=== PATIENT | male | born 1955 | race Caucasian/White ===

== ENCOUNTER → 2018-08-09 | Outpatient (CLI) | payer OTHER ==
--- NOTE | 2018-08-09 13:58 | Diagnostic Imaging Report ---
Indication: Back pain Findings: Sternal wires midline. Thoracic body heights maintained. The alignment within normal limits. There is degenerative changes to the thoracic spine with anterior osteophytes. Impression: Spondylosis with no fracture or traumatic malalignment. Dictated by: Dictated on workstation # [id number]
--- NOTE | 2018-08-09 15:03 | Diagnostic Imaging Report ---
EXAMINATION: Lumbar spine at 12:49 p.m. INDICATION: Back pain. FINDINGS: AP, lateral, and spot lateral views were obtained. There are no prior studies available for comparison. The lateral view shows the vertebral body heights and alignment to be within normal limits. There is narrowing of the disc space at L5-S1. The other intervertebral disc spaces are well maintained. There is no fracture or acute bony abnormality evident. There is no sign of a paraspinal mass. There is mild symmetrical sclerosis of the sacroiliac joints. IMPRESSION: 1. There is no evidence for an acute bony abnormality. 2. There is moderate degenerative disc disease at L5-S1. If there is clinical concern regarding spinal stenosis or nerve root encroachment at this level, then MRI will be recommended for additional study. Dictated by: Dictated on workstation # [id number]
--- NOTE | 2018-08-09 15:54 | Diagnostic Imaging Report ---
EXAMINATION: Cervical spine at 12:46 p.m. INDICATION: Chronic pain. FINDINGS: AP, lateral, and odontoid views were obtained. There are no prior studies available for comparison. The lateral view does show narrowing of the disc space at C5-C6. There are also osteophytes along the opposing endplates of C5 and C6 anteriorly. The other intervertebral disc spaces are fairly well maintained. There is no fracture or acute bony abnormality evident. There is no evidence for retropharyngeal edema and the lung apices are clear. There is a coiled radiopaque density in the soft tissues of the left side of the neck. This is probably extraneous to the patient. IMPRESSION: 1. There is no evidence for an acute bony abnormality. 2. There is degenerative disc and bony disease at C5-C6. If there is clinical concern regarding spinal stenosis or nerve root encroachment, then MRI will be recommended for further evaluation. Dictated by: Dictated on workstation # [id number]
== END ==
LOC: RAD 12:27
PROVIDERS: ATTEND Nurse Practitioner Adult Health
DX: M51.37 Other intervertebral disc degeneration, lumbosacral region (principal); M47.814 Spondylosis without myelopathy or radiculopathy, thoracic region; M89.9 Disorder of bone, unspecified; M50.322 Other cervical disc degeneration at C5-C6 level
CPT/HCPCS: 72040; 72072; 72100

== ENCOUNTER 2018-12-17 11:19 | Emergency (ER) | payer OTHER ==
[~2018-12-17] VITALS: Ht 177 cm; Wt 92.0 kg
--- NOTE | 2018-12-17 12:09 | ED GI ---
General Chief Complaint: Abdominal/GI Problems Stated Complaint: R SIDE ABD SWELLING Nursing Triage Note: Patient ambulatory to ER FT1 with complaint of right lower qudrant abdominal pain and distention since . Patient denies any recent trauma. Patient is currently taking antibiotics for right foot infection. Sepsis Screen: No Definite Risk Source of Information: Patient Exam Limitations: No Limitations (KIERAN BOLANOS STUDENT) History of Present Illness Date Seen by Provider: Dec 17, 2018 Time Seen by Provider: 11:50 Initial Comments Patient presents to the ED with a five day history of abdominal swelling in the RUQ and RLQ accompanied with slight pain. He noticed it night before going to bed. He has had a cholecystectomy and states he does not drink, howev er he is a long time smoker. The patient states that he has been having 2-4 bowel movements a day and almost all are formed. He currently had foot surgery and is currently taking Cephalexin to prevent infection. He has no problems when having a BM or during micturition. The patient does not complain of any other associated symptoms. Timing/Duration: 4-5 Days Severity/Quality: Mild, Dull Location: RUQ, RLQ, Flank (Left flank) Radiation: Flank (The pain on his right side radiates to the right flank) Activities at Onset: None Modifying Factors: Improves With Other (Nothing has made the swelling go down or the pain to subside) Associated Symptoms: Swelling/Mass in Abdomen (KIERAN BOLANOS STUDENT) Timing/Duration: 4-5 Days Severity/Quality: Mild, Aching, Dull Location: Flank (Left flank) (RIZWAN LEE MD) Allergies and Home Medications Allergies Coded Allergies: codeine (Verified Allergy, Unknown, 12/17/18) Patient Home Medication List Home Medication List Reviewed: Yes (RIZWAN LEE MD) Review of Systems Review of Systems Constitutional: no symptoms reported EENTM: No Symptoms Reported Respiratory: No Symptoms Reported Cardiovascular: No Symptoms Reported Gastrointestinal: See HPI Genitourinary: No Symptoms Reported Musculoskeletal: no symptoms reported Skin: no symptoms reported Psychiatric/Neurological: No Symptoms Reported Endocrine: No Symptoms Reported Hematologic/Lymphatic: No Symptoms Reported (KIREAN BOLANOS) Constitutional: no symptoms reported EENTM: See HPI, Mouth Pain; No Mouth Swelling; Other (dental pain) Respiratory: Denies Shortness of Air, Denies Wheezing Cardiovascular: Denies Chest Pain, Denies Edema Gastrointestinal: See HPI; Denies Nausea, Denies Vomiting (RIZWAN LEE MD) All Other Systems Reviewed Negative Unless Noted: Yes (RIZWAN LEE MD) Past Rtyamys-Cryeqv-Fewepd Hx Past Med/Social Hx: Reviewed Nursing Past Med/Soc Hx (RIZWAN LEE MD) Patient Social History Recent Foreign Travel: No Contact w/Someone Who Travel: No Recent Infectious Disease Expo: No (KIERAN BOLANOS STUDENT) Family Medical History Reviewed Nursing Family Hx (RIZWAN LEE MD) No Pertinent Family Hx (RIZWAN LEE MD) Physical Exam Vital Signs Vital Signs - First Documented 12/17/18 11:43 Temp 37.0 Pulse 97 Resp 16 B/P (MAP) 164/108 (126) Pulse Ox 99 O2 Delivery Room Air (RIZWAN LEE MD) Vital Signs Capillary Refill : Less Than 3 Seconds (KIERAN BOLANOS STUDENT) Height/Weight/BMI Height: '" Weight: lbs. oz. kg; 29.00 BMI Method: General Appearance: no apparent distress HEENT: PERRL/EOMI, pharynx normal Respiratory: chest non-tender, lungs clear, normal breath sounds, no respiratory distress, no accessory muscle use Cardiovascular: normal peripheral pulses, regular rate, rhythm, no edema, no gallop, no JVD, no murmur Peripheral Pulses: 2+ Dorsalis Pedis (R), 2+ Left Dors-Pedis (L), 2+ Radial Pulses (R), 2+ Radial Pulses (L) Gastrointestinal: normal bowel sounds, soft, no organomegaly, tenderness, mass (Questionable palpable mass) Extremities: non-tender, normal inspection, no pedal edema, no calf tenderness Back: no vertebral tenderness, CVA tenderness (R) Neurologic/Psychiatric: no motor/sensory deficits, alert, normal mood/affect, oriented x 3 Skin: normal color, warm/dry Lymphatic: no adenopathy (KIERAN BOLANOS STUDENT) General Appearance: WD/WN, no apparent distress HEENT: PERRL/EOMI, pharynx normal Neck: full range of motion, supple Respiratory: no respiratory distress, no accessory muscle use, crackles (mild basilar) Cardiovascular: regular rate, rhythm, no murmur Gastrointestinal: normal bowel sounds, soft, tenderness (right flank), mass (Questionable palpable mass right flank) Extremities: non-tender, normal inspection Back: no vertebral tenderness, CVA tenderness (R) Neurologic/Psychiatric: alert, oriented x 3 Skin: normal color, warm/dry (RIZWAN LEE MD) Progress/Results/Core Measures Results/Orders Lab Results Laboratory Tests Test 12/17/18 12:42 12/17/18 13:00 Range/Units White Blood Count 8.9 4.3-11.0 10^3/uL Red Blood Count 5.35 4.35-5.85 10^6/uL Hemoglobin 16.4 13.3-17.7 G/DL Hematocrit 48 40-54 % Mean Corpuscular Volume 90 80-99 FL Mean Corpuscular Hemoglobin 31 25-34 PG Mean Corpuscular Hemoglobin Concent 34 32-36 G/DL Red Cell Distribution Width 13.5 10.0-14.5 % Platelet Count 171 130-400 10^3/uL Mean Platelet Volume 9.7 7.4-10.4 FL Neutrophils (%) (Auto) 68 42-75 % Lymphocytes (%) (Auto) 22 12-44 % Monocytes (%) (Auto) 9 0-12 % Eosinophils (%) (Auto) 1 0-10 % Basophils (%) (Auto) 0 0-10 % Neutrophils # (Auto) 6.0 1.8-7.8 X 10^3 Lymphocytes # (Auto) 2.0 1.0-4.0 X 10^3 Monocytes # (Auto) 0.8 0.0-1.0 X 10^3 Eosinophils # (Auto) 0.1 0.0-0.3 10^3/uL Basophils # (Auto) 0.0 0.0-0.1 10^3/uL Sodium Level 142 135-145 MMOL/L Potassium Level 4.0 3.6-5.0 MMOL/L Chloride Level 105 98-107 MMOL/L Carbon Dioxide Level 26 21-32 MMOL/L Anion Gap 11 5-14 MMOL/L Blood Urea Nitrogen 20 H 7-18 MG/DL Creatinine 1.18 0.60-1.30 MG/DL Estimat Glomerular Filtration Rate > 60 BUN/Creatinine Ratio 17 Glucose Level 92 70-105 MG/DL Calcium Level 9.4 8.5-10.1 MG/DL Corrected Calcium 9.4 8.5-10.1 MG/DL Total Bilirubin 0.7 0.1-1.0 MG/DL Aspartate Amino Transf (AST/SGOT) 16 5-34 U/L Alanine Aminotransferase (ALT/SGPT) 15 0-55 U/L Alkaline Phosphatase 95 40-136 U/L C-Reactive Protein High Sensitivity 5.74 H 0.00-0.50 MG/DL Total Protein 7.2 6.4-8.2 GM/DL Albumin 4.0 3.2-4.5 GM/DL Urine Color YELLOW Urine Clarity CLEAR Urine pH 6 5-9 Urine Specific [place] 1.020 1.016-1.022 Urine Protein 1+ H NEGATIVE Urine Glucose (UA) NEGATIVE NEGATIVE Urine Ketones NEGATIVE NEGATIVE Urine Nitrite NEGATIVE NEGATIVE Urine Bilirubin NEGATIVE NEGATIVE Urine Urobilinogen NORMAL NORMAL MG/DL Urine Leukocyte Esterase 1+ H NEGATIVE Urine RBC (Auto) 1+ H NEGATIVE Urine RBC 0-2 /HPF Urine WBC 0-2 /HPF Urine Squamous Epithelial Cells NONE /HPF Urine Crystals PRESENT H /LPF Urine Calcium Oxalate Crystals RARE H /LPF Urine Bacteria NEGATIVE /HPF Urine Casts NONE /LPF Urine Mucus NEGATIVE /LPF Urine Culture Indicated NO (RIZWAN LEE MD) My Orders Orders - RIZWAN LEE MD Ed Iv/Invasive Line Start (12/17/18 12:19) Ns Iv 1000 Ml (Sodium Chloride 0.9%) (12/17/18 12:19) Cbc With Automated Diff (12/17/18 12:19) Comprehensive Metabolic Panel (12/17/18 12:19) Hs C Reactive Protein (12/17/18 12:19) Ua Culture If Indicated (12/17/18 12:19) Ct Abdomen/Pelvis W (12/17/18 13:09) Chest Pa/Lat (2 View) (12/17/18 13:09) Iohexol Injection (Omnipaque 350 Mg/Ml 1 (12/17/18 14:45) Received Contrast (Hold Metformin- Contr (12/17/18 14:45) Ns (Ivpb) (Sodium Chloride 0.9% Ivpb Bag (12/17/18 14:45) (RIZWAN LEE MD) Medications Given in ED Current Medications Medications Dose Ordered Sig/Delilah Route Start Time Stop Time Status Last Admin Dose Admin Iohexol 100 ml ONCE ONCE IV 12/17/18 14:45 12/17/18 14:46 DC 12/17/18 14:45 100 ML Sodium Chloride 100 ml ONCE ONCE IV 12/17/18 14:45 12/17/18 14:46 DC 12/17/18 14:45 80 ML Sodium Chloride 1,000 ml @ 0 mls/hr Q0M ONCE IV 12/17/18 12:19 12/17/18 12:21 DC 12/17/18 12:47 1,000 MLS/HR (RIZWAN LEE MD) Vital Signs/I&O 12/17/18 11:43 Temp 37.0 Pulse 97 Resp 16 B/P (MAP) 164/108 (126) Pulse Ox 99 O2 Delivery Room Air (RIZWAN LEE MD) Blood Pressure Mean: 126 POS Progress Progress Note : Progress Note I seen and evaluated the patient and agree with above except as indicated. Directed the plan of care. Patient is here with right-sided pain and swelling. Denies recent trauma or injury. He does take an aspirin several times a day for tooth pain but only one aspirin every 4-5 hours. He is currently on antibiotics for that. Denies nausea, vomiting or weakness. Physical exam as above. Plan is for IV, labs and CT scan of the abdomen and pelvis. We will get chest x-ray as he is a smoker and has had some cough. Monitor patient. 1520: CT results noted. This was discussed with the surgeon. He does have hematoma to the right intra- abdominal wall. I did rediscuss with the patient about, and he still denies that. We did discuss about aspirin given the hematoma and he still prefers to take that. [facility] and [facility]. Discharged home with return precautions. Patient verbalize unders tanding instructions and agreement with plan. (RIZWAN LEE MD) Diagnostic Imaging Diagonstic Imaging: Xray Plain Films/CT/US/NM/MRI: chest Comments [facility] POS [place], [place] POS NAME: MAGDALENA PINEDA Ismael [facility] REC#: [id number] PT STATUS: REG ER : 1955 PHYSICIAN: RIZWAN LEE MD ADMIT DATE: 12/17/18/ER Draft POSDate of Exam:12/17/18 CHEST PA/LAT (2 VIEW) INDICATION: Right-sided abdominal swelling. Time of exam 2:10 p.m. COMPARISON: No prior studies are available for comparison. FINDINGS: There are changes of median sternotomy. The heart is mildly enlarged. Lungs are clear. No infiltrates are seen. There is no evidence of congestive failure. No effusion or pneumothorax is seen. IMPRESSION: No acute cardiopulmonary process is detected. Dictated on workstation # [id number] Dict: 12/17/18 1412 Trans: 12/17/18 1416 [facility] [id number] Interpreted by: SABRINA DNAIELLE MD Electronically signed by: Celsansradha Imaging: CT Plain Films/CT/US/NM/MRI: abdomen, pelvis Comments [facility]. POS [place], [place] POS NAME: MAGDALENA PINEDA [facility] REC#: [id number] PT STATUS: REG ER : 1955 PHYSICIAN: RIZWAN LEE MD ADMIT DATE: 12/17/18/ER Draft POSDate of Exam:12/17/18 CT ABDOMEN/PELVIS W PROCEDURE: CT abdomen and pelvis with contrast. TECHNIQUE: Multiple contiguous axial images were obtained through the abdomen and pelvis after administration of intravenous contrast. Auto Exposure Controls were utilized during the CT exam to meet ALARA standards for radiation dose reduction. INDICATION: Lower right side swelling. COMPARISON: No prior studies are available for comparison. FINDINGS: There is some scarring or subsegmental atelectasis in the posterior right lower lobe. Otherwise, the lung bases are clear. No discrete liver mass is identified. Gallbladder is surgically absent. No biliary ductal dilatation is seen. Pancreas and spleen are unremarkable. No adrenal mass is identified. No renal calculus or hydronephrosis is identified. Aorta is nonaneurysmal. The small and large bowel loops are normal caliber. There is no obstruction. There is diverticulosis of the sigmoid but no evidence of acute diverticulitis. No free fluid is identified. Bladder is unremarkable. Prostate is mildly enlarged. Within the abdominal wall of the right flank, there is a probable small fluid collection. This measures approximately 4.9 cm AP x 2.1 cm transverse x 4.1 cm cephalocaudal. No internal gas is seen. It is most suggestive of a small abdominal wall hematoma. The bony structures are nonacute. IMPRESSION: 1. Low-density collection within the right flank abdominal wall, most suggestive of an abdominal wall hematoma. Even so, close-interval follow-up to confirm clearing is recommended. 2. Uncomplicated diverticulosis. 3. Prostatomegaly. Dictated on workstation # [id number] Dict: 12/17/18 1456 Trans: 12/17/18 1505 [id number] Interpreted by: SABRINA DANIELLE MD Electronically signed by: (RIZWAN LEE MD) Departure Impression Primary Impression: Abdominal wall hematoma Qualified Codes: S30.1XXA - Contusion of abdominal wall, initial encounter Disposition: 01 HOME, SELF-CARE Condition: Stable Departure-Patient Inst. Decision time for Depature: 15:24 (RIZWAN LEE MD) Referrals: NO,LOCAL PHYSICIAN (PCP) Primary Care Physician ANJUM DANIELS (Family) Primary Care Physician Patient Instructions: Acute Abdomen (Belly Pain), Adult (DC), HEMATOMA Add. Discharge Instructions: All discharge instructions reviewed with patient and/or family. Voiced understanding. Continue antibiotics for your tooth pain as prescribed and follow-up with the dentist as scheduled. [facility] and further evaluation regarding the abdominal wall hematoma. You really should limit use of aspirin due to that hematoma. You may use Tylenol 1000 mg every 6 hours as needed for pain instead. Return for worse pain, swelling, weakness, breathing problems, nausea or vomiting or other concerns as needed. KIERAN BOLANOS STUDENT Dec 17, 2018 12:09 RIZWAN MILNER MD Dec 17, 2018 15:25 POS
[2018-12-17] MEDS ORDERED: NS IV 1000 ML 1,000 ML IV ONE (12:19)
[2018-12-17 12:49] LABS: BASOPHILS % (AUTO) 0 % (0-10); EOSINOPHILS # (AUTO) 0.1 10^3/uL (0.0-0.3); EOSINOPHILS % (AUTO) 1 % (0-10); HEMATOCRIT 48 % (40-54); HEMOGLOBIN 16.4 G/DL (13.3-17.7); LYMPHOCYTES % (AUTO) 22 % (12-44); MEAN CORPUSCULAR HEMOGLOBIN 31 PG (25-34); MEAN CORPUSCULAR HGB CONC 34 G/DL (32-36); MEAN CORPUSCULAR VOLUME 90 FL (80-99); MEAN PLATELET VOLUME 9.7 FL (7.4-10.4); MONOCYTES # (AUTO) 0.8 X 10^3 (0.0-1.0); MONOCYTES % (AUTO) 9 % (0-12); NEUTROPHILS % (AUTO) 68 % (42-75); PLATELET COUNT 171 10^3/uL (130-400); RED CELL DISTRIBUTION WIDTH 13.5 % (10.0-14.5); WHITE BLOOD COUNT 8.9 10^3/uL (4.3-11.0)
[2018-12-17 13:06] LABS: ALANINE AMINOTRANSFERASE 15 U/L (0-55); ALKALINE PHOSPHATASE 95 U/L (40-136); BILIRUBIN,TOTAL 0.7 MG/DL (0.1-1.0); BUN/CREATININE RATIO 17; CALCIUM 9.4 MG/DL (8.5-10.1); CARBON DIOXIDE 26 MMOL/L (21-32); CHLORIDE 105 MMOL/L (98-107); CREATININE SERUM 1.18 MG/DL (0.60-1.30); GFR ESTIMATED > 60; GLUCOSE 92 MG/DL (70-105); SODIUM 142 MMOL/L (135-145); TOTAL PROTEIN 7.2 GM/DL (6.4-8.2)
[2018-12-17 13:09] LABS: BILIRUBIN,URINE NEGATIVE (NEGATIVE); CLARITY,URINE CLEAR; COLOR,URINE YELLOW; GLUCOSE, URINE (UA) NEGATIVE (NEGATIVE); KETONES,URINE NEGATIVE (NEGATIVE); LEUKOCYTE ESTERASE ,URINE 1+ (NEGATIVE); NITRITE,URINE NEGATIVE (NEGATIVE); PH,URINE 6 (5-9); PROTEIN,URINE 1+ (NEGATIVE)
[2018-12-17 13:30] LABS: BACTERIA,URINE NEGATIVE /HPF; CALCIUM OXALATE CRYSTALS,UR RARE /LPF; RBC,URINE 0-2 /HPF; WBC,URINE 0-2 /HPF
--- NOTE | 2018-12-17 14:16 | Diagnostic Imaging Report ---
INDICATION: Right-sided abdominal swelling. Time of exam 2:10 p.m. COMPARISON: No prior studies are available for comparison. FINDINGS: There are changes of median sternotomy. The heart is mildly enlarged. Lungs are clear. No infiltrates are seen. There is no evidence of congestive failure. No effusion or pneumothorax is seen. IMPRESSION: No acute cardiopulmonary process is detected. Dictated by: Dictated on workstation # [id number]
[2018-12-17] MEDS ORDERED: HOLD METFORMIN - RECEIVED CONTRAST 20 ML VIAL IV SCH (14:45)
[2018-12-17] MEDS ORDERED: NS 100 ML (IVPB) BAG IV ONE (14:45)
[2018-12-17] MEDS ORDERED: IOHEXOL 350 MG/ML 100 ML (OMNIPAQUE 350) VIAL IV ONE (14:45)
--- NOTE | 2018-12-17 15:06 | Diagnostic Imaging Report ---
PROCEDURE: CT abdomen and pelvis with contrast. TECHNIQUE: Multiple contiguous axial images were obtained through the abdomen and pelvis after administration of intravenous contrast. Auto Exposure Controls were utilized during the CT exam to meet ALARA standards for radiation dose reduction. INDICATION: Lower right side swelling. COMPARISON: No prior studies are available for comparison. FINDINGS: There is some scarring or subsegmental atelectasis in the posterior right lower lobe. Otherwise, the lung bases are clear. No discrete liver mass is identified. Gallbladder is surgically absent. No biliary ductal dilatation is seen. Pancreas and spleen are unremarkable. No adrenal mass is identified. No renal calculus or hydronephrosis is identified. Aorta is nonaneurysmal. The small and large bowel loops are normal caliber. There is no obstruction. There is diverticulosis of the sigmoid but no evidence of acute diverticulitis. No free fluid is identified. Bladder is unremarkable. Prostate is mildly enlarged. Within the abdominal wall of the right flank, there is a probable small fluid collection. This measures approximately 4.9 cm AP x 2.1 cm transverse x 4.1 cm cephalocaudal. No internal gas is seen. It is most suggestive of a small abdominal wall hematoma. The bony structures are nonacute. IMPRESSION: 1. Low-density collection within the right flank abdominal wall, most suggestive of an abdominal wall hematoma. Even so, close-interval follow-up to confirm clearing is recommended. 2. Uncomplicated diverticulosis. 3. Prostatomegaly. Dictated by: Dictated on workstation # [id number]
--- NOTE | 2018-12-17 15:24 | NUR ---
Patient refuses to let RN obtain vital signs on him. Patient is conscious, alert and oriented x 4.
[2018-12-17 15:33] VITALS: BP 164/108
== END 2018-12-17 15:33 | disposition home or self-care (01) ==
LOC: EDUNIT# 11:19 → ER 11:20
DX: S30.1XXA Contusion of abdominal wall, initial encounter (principal); Z90.49 Acquired absence of other specified parts of digestive tract; Z88.5 Allergy status to narcotic agent; X58.XXXA Exposure to other specified factors, initial encounter
CPT/HCPCS: 36415; 71046; 74177; 80053; 81000; 85025; 86141; 96360

== ENCOUNTER 2019-07-12 09:22 | Outpatient (RCR) | payer OTHER ==
[~2019-07-12] VITALS: Ht 177.8 cm; Wt 90.1 kg
[~2019-07-12 09:22] MED LIST: ASPI-586 PO
== END 2019-07-12 14:52 | disposition home or self-care (01) ==
LOC: PREOP 09:22
PROVIDERS: ATTEND Surgery
DX: Z01.818 Encounter for other preprocedural examination (principal); Z11.59 Encounter for screening for other viral diseases; S30.1XXA Contusion of abdominal wall, initial encounter
CPT/HCPCS: 87635

== ENCOUNTER 2019-07-18 10:41 | Day surgery (SDC) | payer OTHER ==
[2019-07-18] VITALS (10 sets, daily range): BP systolic 77–170; BP diastolic 54–109
[~2019-07-18] VITALS: Ht 177.8 cm; Wt 90.1 kg
[2019-07-18] MEDS ORDERED: SEVOFLURANE (ULTANE) 15 ML INHAL SOLN INH ONE (10:42)
[2019-07-18] MEDS ORDERED: LACTATED RINGERS 1,000 ML IV PRN (11:09)
--- NOTE | 2019-07-18 11:13 | Progress Note-Pre Operative ---
Pre-Operative Progress Note H&P Reviewed The H&P was reviewed, patient examined and no changes noted. Date Seen by Provider: July 18, 2019 Time Seen by Provider: 11:00 Date H&P Reviewed: July 18, 2019 Time H&P Reviewed: 11:00 Pre-Operative Diagnosis: intramuscular abdominal wall hematoma BUSTER FRANCO MD July 18, 2019 11:13
[2019-07-18] MEDS ORDERED: oxyCODONE/APAP 5/325MG (PERCOCET 5) TABLET PO PRN (11:15)
[2019-07-18] MEDS ORDERED: ceFAZolin 2 GM IV Premixed 50 ML IV ONE (11:15)
[2019-07-18] MEDS ORDERED: ACETAMINOPHEN 325 MG TABLET PO PRN (11:15)
[2019-07-18] MEDS ORDERED: ONDANSETRON 4 MG/2 ML (SDV) Z0FRAN IVP PRN ×2 (11:15→13:30)
[2019-07-18] MEDS ORDERED: morphine INJ 10 MG/ML 1ML (SYR OR VIAL) IVP PRN ×2 (11:15)
--- NOTE | 2019-07-18 11:15 | Discharge Inst-Surgical ---
D/C Lap Instructions-SALVADOR New, Converted, or Re-Newed RX: RX on Chart Follow Up Appt in 2 weeks Activity as tolerated No driving for 24 hours No [address] while on pain medications Incentive Spirometry use every 2 hours while awake Regular Diet Symptoms to Report: Fever over 101 degree F, Nausea/Vomiting Infection Signs and Symptoms to report: Increased redness, Foul odor of wound, Increased drainage Bathing instructions: May shower Operative Area Clean/Dry; Keep incision clean/dry If any problems/questions: Contact your physician or go to Emergency Room BUSTER FRANCO MD July 18, 2019 11:15
[2019-07-18] MEDS ORDERED: ASPI-808 PO (11:16)
[2019-07-18] MEDS ORDERED: BUP/EPI 0.5% 1:200,000 (SENSORCAINE) 30 ML VIAL ONE (11:31)
[2019-07-18] MEDS ORDERED: DEXAMETHASONE 10 MG/ML (DECADRON) 1 ML VIAL ONE (11:39)
[2019-07-18] MEDS ORDERED: ONDANSETRON 4 MG/2 ML (SDV) Z0FRAN ONE (11:39)
[2019-07-18] MEDS ORDERED: SEVOFLURANE (ULTANE) 15 ML INHAL SOLN ONE (11:39)
[2019-07-18] MEDS ORDERED: LIDOCAINE PF 2% 5 ML (XYLOCAINE) VIAL ONE (11:39)
[2019-07-18] MEDS ORDERED: proPOfol 200 MG/20 ML (DIPRIVAN) VIAL IV ONE (11:39)
[2019-07-18] MEDS ORDERED: fentaNYL INJECTION 100 MCG/2 ML AMP ONE (11:40)
[2019-07-18] MEDS ORDERED: MIDAZOLAM 2 MG/2 ML (VERSED) VIAL ONE (11:40)
--- OUTSIDE RECORDS SUMMARY | 2019-07-18 11:54 | XMS REPORT | Continuity of Care Document ---
Author Organization Unknown Address Unknown Phone Unavailable Allergies Active Description Code Type Severity Reaction Onset Reported/Identified Relationship to Patient Clinical Status Yes codeine Drug N/A N/A Yes meperidine Drug N/A N/A Yes simvastatin Drug N/A N/A Yes codeine [id number] Drug Allergy Unknown N/A 12/17/2018 Yes meperidine [id number] Drug Allerg y Unknown Vomiting 07/11/2019 Medications There is no data. 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 OTHER CERVICAL DISC DEGENERATION AT C5-C 08/10/2018 ANJUM DANIELS Ot M51.37 OTHER INTERVERTEBRAL DISC DEGENERATION, 08/10/2018 ANJUM DANIELS Ot M89.9 DISORDER OF BONE, UNSPECIFIED 12/17/2018 RIZWAN LEE MD Ot R10.31 RIGHT LOWER QUADRANT PAIN 12/17/2018 RIZWAN LEE MD, Ot S30.1XXA CONTUSION OF ABDOMINAL WALL, INITIAL ENC 12/17/2018 RIZWAN LEE MD Ot X58.XXXA EXPOSURE TO OTHER SPECIFIED FACTORS, INI 12/17/2018 RIZWAN LEE MD Ot Z88.5 ALLERGY STATUS TO NARCOTIC AGENT STATUS 12/17/2018 RIZWAN LEE MD Ot Z90.49 ACQUIRED ABSENCE OF OTHER SPECIFIED PART 12/17/2018 ANJUM DANIELS Ot M47.814 SPONDYLOSIS W/O MYELOPATHY OR RADICULOPA 12/17/2018 ANJUM DANIELS Ot M50.322 OTHER CERVICAL DISC DEGENERATION AT C5-C 12/17/2018 ANJUM DANIELS Ot M51.37 OTHER INTERVERTEBRAL DISC DEGENERATION, 12/17/2018 ANJUM DANIELS Ot M89.9 DISORDER OF BONE, UNSPECIFIED 12/21/2018 RIZWAN LEE MD, Ot R10.31 RIGHT LOWER QUADRANT PAIN 12/21/2018 RIZWAN LEE MD, Ot S30.1XXA CONTUSION OF ABDOMINAL WALL, INITIAL ENC 12/21/2018 RIZWAN LEE MD, Ot X58.XXXA EXPOSURE TO OTHER SPECIFIED FACTORS, INI 12/21/2018 RIZWAN LEE MD, Ot Z88.5 ALLERGY STATUS TO NARCOTIC AGENT STATUS 12/21/2018 RIZWAN LEE MD, Ot Z90.49 ACQUIRED ABSENCE OF OTHER SPECIFIED PART 07/12/2019 ANJUM DANIELS Ot M47.814 SPONDYLOSIS W/O MYELOPATHY OR RADICULOPA 07/12/2019 ANJUM DANIELS Ot M50.322 OTHER CERVICAL DISC DEGENERATION AT C5-C 07/12/2019 ANJUM DANIELS Ot M51.37 OTHER INTERVERTEBRAL DISC DEGENERATION, 07/12/2019 ANJUM DANIELS Ot M89.9 DISORDER OF BONE, UNSPECIFIED 07/12/2019 BUSTER FRANCO MD, Ot S30.1X XA CONTUSION OF ABDOMINAL WALL, INITIAL ENC 07/12/2019 BUSTER FRANCO MD, Ot Z01.81 8 ENCOUNTER FOR OTHER PREPROCEDURAL EXAMIN 07/12/2019 BUSTER FRANCO MD, Ot Z11.59 ENCOUNTER FOR SCREENING FOR OTHER VIRAL Procedures There is no data. Results Test Result Range Complete blood count (CBC) with automate d white blood cell (WBC) differential - 12/17/18 12:42 Blood leukocytes automated count (number/volume) 8.9 10*3/uL 4.3-11.0 Blood erythrocytes automated count (number/volume) 5.35 10*6/uL 4.35-5.85 Venous blood hemoglobin measurement (mass/volume) 16.4 g/dL 13.3-17.7 Blood hematocrit (volume fraction) 48 % 40-54 Automated erythrocyte mean corpuscular volume 90 [ foz_us] 80-99 Automated erythrocyte mean corpuscular h emoglobin (mass per erythrocyte) 31 pg 25-34 Automated erythrocyte mean corpuscular h emoglobin concentration measurement (mass/volume) 34 g/dL 32-36 Automated erythrocyte distribution width ratio 13. 5 % 10.0- 14.5 Automated blood platelet count (count/volume) 171 10*3/uL 130-400 Automated blood platelet mean volume measurement 9.7 [foz_us] 7.4-10.4 Automated blood neutrophils/100 leukocytes 68 % 42-75 Automated blood lymphocytes/100 leukocytes 22 % 12-44 Blood monocytes/100 leukocytes 9 % 0-12 Automated blood eosinophils/100 leukocytes 1 % 0-10 Automated blood basophils/100 leukocytes 0 % 0-10 Blood neutrophils automated count (number/volume) 6.0 10*3 1.8-7.8 Blood lymphocytes automated count (number/volume) 2.0 10*3 1.0-4.0 Blood monocytes automated count (number/volume) 0. 8 10*3 0.0-1.0 Automated eosinophil count 0.1 10*3/uL 0 .0-0.3 Automated blood basophil count (count/volume) 0.0 10*3/uL 0.0-0.1 Comprehensive metabolic panel - 12/17/18 12:42 Serum or plasma sodium measurement (moles/volume) 142 mmol/L 135-145 Serum or plasma potassium measurement (moles/volume) 4.0 mmol/L 3.6-5.0 Serum or plasma chloride measurement (moles/volume) 105 mmol/L 98-107 Carbon dioxide 26 mmol/L 21-32 Serum or plasma anion gap determination (moles/volume) 11 mmol/L 5-14 Serum or plasma urea nitrogen measurement (mass/volume ) 20 mg/dL 7-18 Serum or plasma creatinine measurement (mass/volume) 1.18 mg/dL 0.60-1.30 Serum or plasma urea nitrogen/creatinine mass ratio 17 NRG Serum or plasma creatinine measurement w ith calculation of estimated glomerular filtration rate > NRG Serum or plasma glucose measurement (mass/volume) 92 mg/dL 70-105 Serum or plasma calcium measurement (mass/volume) 9.4 mg/dL 8.5-10.1 Serum or plasma total bilirubin measurement (mass/volu me) 0.7 mg/dL 0.1-1.0 Serum or plasma alkaline phosphatase luz surement (enzymatic activity/volume) 95 U/L 40-136 Serum or plasma aspartate aminotransfera se measurement (enzymatic activity/volume) 16 U/L 5-34 Serum or plasma alanine aminotransferase measurement (enzymatic activity/volume) 15 U/L 0-55 Serum or plasma protein measurement (mass/volume) 7.2 g/dL 6.4-8.2 Serum or plasma albumin measurement (mass/volume) 4.0 g/dL 3.2-4.5 CALCIUM CORRECTED 9.4 mg/dL 8.5-10.1 Serum or plasma C reactive protein measu rement (mass/volume) - 12/17/18 12:42 Serum or plasma C reactive protein measurement (mass/v olume) 5.74 mg/dL 0.00-0.50 Complete urinalysis with reflex to cultu re - 12/17/18 13:00 Urine color determination YELLOW NRG Urine clarity determination CLEAR NR G Urine pH measurement by test strip 6 5-9 Specific gravity of urine by test strip 1.020 1.016-1.022 Urine protein assay by test strip, semi-quantitative 1+ NEGATIVE Urine glucose detection by automated test strip NE GATIVE NEGATIVE Erythrocytes detection in urine sediment by light micr oscopy 1+ NEGATIVE Urine ketones detection by automated test strip NE GATIVE NEGATIVE Urine nitrite detection by test strip NEGATIVE NEGATIVE Urine total bilirubin detection by test strip NEGA TIVE NEGATIVE Urine urobilinogen measurement by automated test strip (mass/volume) NORMAL NORMAL Urine leukocyte esterase detection by dipstick 1+ NEGATIVE Automated urine sediment erythrocyte cou nt by microscopy (number/high power field) [HPF] NRG Automated urine sediment leukocyte count by microscopy (number/high power field) [HPF] NRG Bacteria detection in urine sediment by light microsco py NEGATIVE NRG Squamous epithelial cells detection in u rine sediment by light microscopy NONE NRG Crystals detection in urine sediment by light microsco py PRESENT NRG Casts detection in urine sediment by light microscopy NONE NRG Mucus detection in urine sediment by light microscopy NEGATIVE NRG Complete urinalysis with reflex to culture NO NRG Calcium oxalate crystals detection in ur ine sediment by light microscopy RARE NRG Coronavirus SARS-CoV-2 SO 2018 - 0 13:45 Coronavirus Ab [Units/volume] in Serum Negative Negative Encounters ACCT No. Visit Date/Time Discharge Status Pt. Type Provider Facility Loc./Unit Complaint [id number] 05/22/2018 15:04:00 05/22/2018 23:59: 00 DIS Outpatient APRIL HERZOG [id number] 05/11/2018 10:33:00 05/11/2018 23:59: 00 DIS Outpatient FRANCES HAWKINS [id number] 05/11/2018 09:56:00 05/11/2018 23:59: 00 DIS Outpatient FRANCES HAWKINS [id number] 06/18/2018 14:34:45 9 23:59:59 DIS Outpatient GERMAINE YANG [facility] RAD xray [id number] 06/18/2018 13:59:05 9 23:59:59 DIS Outpatient GERMAINE YANG [facility] [id number] 03/26/2018 12:58:02 9 23:59:59 DIS Outpatient GERMAINE YANG [facility] [id number] 05/04/2017 09:32:01 8 23:59:59 DIS Outpatient Marti Lopez [facility] [id number] 07/12/2019 09:22:00 14:52:00 DIS Outpatient BUSTER FRANCO MD [facility] PREOP RIGHT ABDOMINAL WALL HE MATOMA [id number] 12/17/2018 11:20:00 019 15:33:00 DIS Emergency ROSA BLANCA, RIZWAN Laboy [facility] ER R SIDE ABD SWEL LING [id number] 08/09/2018 12:27:00 019 23:59:59 CLS Outpatient JEREMIAHANJUM [facility] RAD LOW BACK PAIN [id number] 07/18/2019 13:30:00 P EN Preadmit BUSTER FRANCO MD [facility] [place] SDC RIGHT ABDOMINAL WALL HEMATOM A
--- NOTE | 2019-07-18 13:16 | Progress Note-Post Operative ---
Post-Operative Progess Note Surgeon (s)/Wildlife Biology Internship (s) Surgeon BUSTER FRANCO MD Wildlife Biology Internship: yanira parmar SEAT MENDER Pre-Operative Diagnosis intramuscular abdominal wall hematoma Post-Operative Diagnosis same Procedure & Operative Findings Date of Procedure 07/18/19 Procedure Performed/Findings evacuation intramuscular abdominal wall hematoma. Anesthesia Type general LMA Estimated Blood Loss Estimated blood loss (mL): minimal Specimens/Packing Specimens Removed none BUSTER FRANCO MD July 18, 2019 13:16
--- NOTE | 2019-07-18 13:27 | Anesthesia-General Post-Op ---
General Patient Condition Mental Status/LOC: Same as Preop Cardiovascular: Satisfactory Nausea/Vomiting: Absent Respiratory: Satisfactory Pain: Controlled Complications: Absent Post Op Complications Complications None Follow Up Care/Instructions Patient Instructions None needed. Anesthesia/Patient Condition Patient Condition Patient is doing well, no complaints, stable vital signs, no apparent adverse anesthesia problems. No complications reported per nursing. ADA MARTIN CRNA July 18, 2019 13:27
[2019-07-18] MEDS ORDERED: morphine INJ 10 MG/ML 1ML (SYR OR VIAL) IVP ONE (13:30)
[2019-07-18] MEDS ORDERED: ADENOSINE 6 MG/2 ML (ADENOCARD) VIAL IV ONE ×2 (13:38→13:39)
[2019-07-18] MEDS ORDERED: HYDR-83 PO (14:26)
--- NOTE | 2019-07-18 20:49 | OPERATIVE REPORT ---
DATE OF SERVICE: 07/18/2019 ATTENDING DICE MAKER: [facility] in [place]. PREOPERATIVE DIAGNOSIS: Intramuscular symptomatic hematoma (5x10cm), right flank. POSTOPERATIVE DIAGNOSIS: Intramuscular symptomatic hematoma (5x10cm), right flank. PROCEDURE: Evacuation submuscular hematoma right flank/abdomen SURGEON: Buster Franco MD WEB PRESSMAN: Kostas Corea APRN. ANESTHESIA: General endotracheal. ESTIMATED BLOOD LOSS: Minimal. FINDINGS: Large chronic hematoma along the right flank underneath the external oblique as well as a what appeared to be a previous fractured rib. DISPOSITION: The patient tolerated the procedure well. INDICATIONS: The patient is a 64-year-old male referred over to the [facility] in [place], [place]. He states that in 11/2018, he developed pain in the right flank region and a lesion was identified, which grew larger in size and became more painful. He states that he underwent an ultrasound, which showed a collection in the right flank 4.9 x 4.1 cm in size. He then underwent a scan, which showed this thickening of the inner layer of the abdominal wall musculature consistent with hematoma. This gentleman refuses to give any information on any past social history and also denies any trauma. DESCRIPTION OF PROCEDURE: The patient was brought to the operating room, laid supine on the table. After adequate IV pain and sedative medications and general endotracheal intubation, the flank was prepped and draped in standard surgical fashion. A 0.5% Marcaine with epinephrine was then used to anesthetize the overlying skin and fascia. A transverse skin incision was then made using a 15 blade. Subcutaneous tissue was then dissected down to the external oblique. The overlying fascia as well as the external oblique were then opened , visualizing a significant sized chronic hematoma with no infection identified. Loculations were then broken up bluntly. This did track anteriorly and posteriorly approximately 5x10cm. Upon further investigation, there appeared to be a previously broken rib as well though slightly displaced. The abscess cavity was then copiously irrigated and suctioned out with visualization of good hemostasis. The external oblique fascia was then reapproximated using 2-0 Vicryl interrupted suture and the skin was closed using 4-0 Monocryl running subcuticular suture. Wound was then cleaned and covered with Dermabond. The patient tolerated the procedure well. I instructed him to do no heavy lifting or exertion for the next two weeks and to keep the area clean and dry. Job ID: [id number] DocumentID: [id number] Dictated Date: 07/18/2019 13:02:39 Healthcare Management Date: 07/18/2019 20:48:46 Dictated By: BSUTER FRANCO MD MTDD
== END 2019-07-18 14:55 | disposition home or self-care (01) ==
LOC: SDC 10:41
PROVIDERS: ATTEND Surgery
DX: S30.1XXA Contusion of abdominal wall, initial encounter (principal); I25.10 Atherosclerotic heart disease of native coronary artery without angina pectoris; I10 Essential (primary) hypertension; Z88.5 Allergy status to narcotic agent; Z88.6 Allergy status to analgesic agent; Z95.1 Presence of aortocoronary bypass graft; Z79.82 Long term (current) use of aspirin; Z79.899 Other long term (current) drug therapy; Z90.89 Acquired absence of other organs; Z85.828 Personal history of other malignant neoplasm of skin; Z90.49 Acquired absence of other specified parts of digestive tract; Z87.891 Personal history of nicotine dependence
CPT/HCPCS: 87081

== ENCOUNTER → 2019-07-29 | Outpatient (CLI) | payer OTHER ==
[~2019-07-29] MED LIST changes: +ASPI-808 PO; +HYDR-83 PO
--- NOTE | 2019-07-29 16:48 | Diagnostic Imaging Report ---
INDICATION: Lower right rib pain. TIME OF EXAM: 3:56 PM. COMPARISON: 12/17/2018. FINDINGS: Changes of median sternotomy are noted. The heart size is stable. The lungs are clear. The pulmonary vascularity is normal. No infiltrates are seen. There is no effusion or pneumothorax. No acute bony abnormality is detected. IMPRESSION: No acute abnormality is detected. Dictated by: Dictated on workstation # [id number]
== END ==
LOC: RAD 15:40
PROVIDERS: ATTEND Surgery
DX: R07.81 Pleurodynia (principal); Z87.81 Personal history of (healed) traumatic fracture
CPT/HCPCS: 71046

== ENCOUNTER → 2019-08-02 | Outpatient (CLI) | payer MEDICARE, OTHER ==
[~2019-08-02] MED LIST changes: +CATHETER FLUSH 10 ML SYR IV PRN; +HOLD METFORMIN - RECEIVED CONTRAST 20 ML VIAL IV SCH; +IOHEXOL 350 MG/ML 100 ML (OMNIPAQUE 350) VIAL IV ONE; +NS 100 ML (IVPB) BAG IV ONE
[2019-08-02 13:28] LABS: CREATININE SERUM 1.05 MG/DL (0.60-1.30); GFR ESTIMATED > 60
[2019-08-02 13:29] LABS: BUN/CREATININE RATIO 12
--- NOTE | 2019-08-02 15:20 | Diagnostic Imaging Report ---
EXAMINATION: CT Chest, Abdomen and Pelvis with intravenous contrast. TECHNIQUE: Multiple contiguous axial images were obtained through the chest, abdomen and pelvis after the uneventful administration of intravenous contrast. All CT scans use one or more of the following dose optimizing techniques: automated exposure control, MA and/or KvP adjustment based on a patient size and exam type, or iterative reconstruction. HISTORY: Rib fracture. COMPARISON: 12/17/2018. FINDINGS: There is no edema or pneumonia. No pleural effusion. No pneumothorax. No suspicious nodules. There is mild right base atelectasis. Left ventricle is [id number] dilated. There are moderate coronary artery calcifications. No pericardial effusion. Aorta is normal in caliber. There is no axillary or supraclavicular lymphadenopathy. There is no mediastinal lymphadenopathy. There has been coronary artery bypass grafting. The liver is normal without focal lesion. There is no biliary ductal dilation. Gallbladder is surgically absent. Pancreas is normal. Spleen is normal. Adrenal glands are normal. The kidneys are normal. There is no hydronephrosis. Urinary bladder is normal. Visualized bowel is normal in caliber without obstruction or inflammation. No free fluid or air. No abdominal or pelvic lymphadenopathy. Aorta is normal in caliber without aneurysm. There are no suspicious osseus lesions. There is thickening and stranding about the right internal and external oblique muscles and transverse abdominal muscle. There is a 1.1 x 2.8 cm fluid collection in the right transverse abdominis muscle. This is similar to prior exam. There is a new 1.2 x 1.0 cm right internal oblique fluid collection. There is a new 2.4 x 6.0 cm right external oblique fluid collection. There is stranding in the right abdominal wall. There is peripheral enhancement on the delayed images about these fluid collections. IMPRESSION: 1. Increase in right abdominal wall fluid collections with peripheral enhancement. While these could potentially represent hematomas, they are more concerning for abscesses. Dictated by: Dictated on workstation # [id number]
== END ==
LOC: RAD 12:45
PROVIDERS: ATTEND Surgery
DX: R18.8 Other ascites (principal); Z87.81 Personal history of (healed) traumatic fracture
CPT/HCPCS: 36415; 71260; 74177; 82565; 84520

== ENCOUNTER 2019-10-03 05:40 | Outpatient (CLI) | payer OTHER ==
[~2019-10-03] VITALS: Ht 177.8 cm; Wt 90.1 kg
[~2019-10-03 05:40] MED LIST changes: -CATHETER FLUSH 10 ML SYR IV PRN; -HOLD METFORMIN - RECEIVED CONTRAST 20 ML VIAL IV SCH; +HYDR-3812 PO; -HYDR-83 PO; -IOHEXOL 350 MG/ML 100 ML (OMNIPAQUE 350) VIAL IV ONE; -NS 100 ML (IVPB) BAG IV ONE
== END 2019-10-03 14:59 | disposition home or self-care (01) ==
LOC: PREOP 05:40
PROVIDERS: ATTEND Surgery
DX: Z01.818 Encounter for other preprocedural examination (principal)

== ENCOUNTER 2019-10-10 07:41 | Day surgery (SDC) | payer OTHER ==
--- NOTE | 2019-10-02 17:06 | HISTORY AND PHYSICAL ---
DATE OF SERVICE: DATE OF ADMISSION: 09/26/2019. HISTORY OF PRESENT ILLNESS: The patient is a 64-year-old male known to us. He was referred over to us from the [facility] in [place], [place]. He states that 11/2018, he developed pain in the right flank region, which grew larger in size, become more painful. He had an ultrasound performed, which showed a fluid collection in the right flank 4.9 x 4.1 cm in size. He denied any trauma; however, refused to give any other past medical history. He was taken to the operating room and underwent evacuation of the submuscular hematoma of the right flank and abdomen, which was 5 x 10 cm in size. Since that time, he has had reoccurrence of the swelling and pain in the region. He states that he does have a cough, which sometimes cause irritation within the region and pain. He states that over time that the area has grown larger in size. A CT scan was performed, which did show a significant size of fluid collection, a 6 x 3 cm in size as well as two smaller ones 1.2 x 1 cm in size as well as 1.1 x 2.8 cm in size. He again states that this area is painful. PAST MEDICAL HISTORY: Hypertension, basal cell cancer of the skin, coronary artery disease. PAST SURGICAL HISTORY: Appendectomy, tonsillectomy, laparoscopic cholecystectomy, coronary artery bypass grafting x2 vessels. SOCIAL HISTORY: The patient refused to provide information. MEDICATIONS: Aspirin 81 mg daily. FAMILY HISTORY: Noncontributory. VITAL SIGNS: Stable, afebrile. REVIEW OF SYSTEMS: Well-nourished male currently in no acute distress. He is not experiencing any shortness of breath or difficulty breathing. No chest pain or palpitations and no diaphoresis. No nausea or vomiting, no diarrhea or constipation. No fever, chills, no recent inadvertent weight loss. All other review of systems negative. PHYSICAL EXAMINATION: CHEST: Clear. Good breath sounds bilaterally. HEART: Regular, no murmurs. EXTREMITIES: No lower extremity edema, negative Homans sign. HEENT: No scleral icterus. NECK: No cervical lymphadenopathy. ABDOMEN: Soft, nontender, nondistended. SKIN: Along the left lateral and inferior thoracic region is the area of swelling and fluctuance overlying the intercostal region, which is tender to palpation. There is no overlying redness or erythema. There are no sinus tracts to indicate any infection. This is tender to palpation. ASSESSMENT AND PLAN: A 64-year-old male with recurrent intramuscular thoracic symptomatic hematoma. We will proceed with incision and evacuation of the hematoma under anesthesia. Job ID: [id number] DocumentID: [id number] Dictated Date: 09/24/2019 17:04:12 Crew Leader Gluing Date: 09/24/2019 17:40:25 Dictated By: BUSTER FRANCO MD
[2019-10-10] VITALS (9 sets, daily range): BP systolic 130–178; BP diastolic 90–127
[~2019-10-10] VITALS: Ht 177.8 cm; Wt 90.1 kg
[2019-10-10] MEDS ORDERED: ceFAZolin INJECTION 1,000 MG in WATER (STERILE) FOR INJECTION 10 ML IV ONE (08:00)
[2019-10-10] MEDS ORDERED: LIDOCAINE PF 2% 5 ML (XYLOCAINE) VIAL ONE (08:05)
[2019-10-10] MEDS ORDERED: ONDANSETRON 4 MG/2 ML (SDV) Z0FRAN ONE (08:05)
[2019-10-10] MEDS ORDERED: proPOfol 200 MG/20 ML (DIPRIVAN) VIAL IV ONE (08:05)
[2019-10-10] MEDS ORDERED: MIDAZOLAM 2 MG/2 ML (VERSED) VIAL ONE ×2 (08:06→08:13)
[2019-10-10] MEDS ORDERED: SEVOFLURANE (ULTANE) 15 ML INHAL SOLN ONE ×4 (08:06→10:07)
[2019-10-10] MEDS ORDERED: fentaNYL INJECTION 100 MCG/2 ML AMP ONE (08:06)
[2019-10-10] MEDS ORDERED: BUP/EPI 0.5% 1:200,000 (MARCAINE) 10ML VIAL IJ ONE (08:06)
[2019-10-10] MEDS ORDERED: LABETALOL HCL 20 MG/4 ML VIAL IV ONE (08:15)
[2019-10-10] MEDS ORDERED: MIDAZOLAM 2 MG/2 ML (VERSED) VIAL IV ONE (08:15)
[2019-10-10] MEDS ORDERED: LABETALOL HCL 20 MG/4 ML VIAL ONE (08:15)
--- NOTE | 2019-10-10 08:16 | Progress Note-Pre Operative ---
Pre-Operative Progress Note H&P Reviewed The H&P was reviewed, patient examined and no changes noted. Date Seen by Provider: Oct 10, 2019 Time Seen by Provider: 08:15 Date H&P Reviewed: Oct 10, 2019 Time H&P Reviewed: 08:10 Pre-Operative Diagnosis: Symptomatic right side abdominal wall hematoma BENJAMIN DE LA CRUZ APRN Oct 10, 2019 08:16
[2019-10-10] MEDS ORDERED: HYDR-4227 PO (08:20)
[2019-10-10] MEDS ORDERED: LACTATED RINGERS 1,000 ML IV PRN (08:20)
--- NOTE | 2019-10-10 08:20 | Discharge Inst-Surgical ---
D/C Lap Instructions-KIDO Reconcile Patient Problems Problems Reviewed?: Yes New, Converted, or Re-Newed RX: RX on Chart Follow Up Appt in 2 weeks Activity as tolerated No driving for 24 hours No driving while on pain medications Incentive Spirometry use every 2 hours while awake Regular Diet Symptoms to Report: Fever over 101 degree F, Nausea/Vomiting Infection Signs and Symptoms to report: Increased redness, Foul odor of wound, Increased drainage Bathing instructions: May shower Operative Area Clean/Dry; Keep incision clean/dry If any problems/questions: Contact your physician or go to Emergency Room BENJAMIN DE LA CRUZ APRN Oct 10, 2019 08:20
[2019-10-10] MEDS ORDERED: ACETAMINOPHEN 325 MG TABLET PO PRN (08:30)
[2019-10-10] MEDS ORDERED: ONDANSETRON 4 MG/2 ML (SDV) Z0FRAN IVP PRN ×2 (08:30→10:45)
[2019-10-10] MEDS ORDERED: fentaNYL INJECTION 100 MCG/2 ML AMP IVP PRN (08:30)
[2019-10-10] MEDS ORDERED: oxyCODONE/APAP 5/325MG (PERCOCET 5) TABLET PO PRN (08:30)
[2019-10-10] MEDS ORDERED: ceFAZolin INJECTION 1,000 MG ONE (08:43)
[2019-10-10] MEDS ORDERED: WATER (STERILE) FOR INJECTION 10 ML ONE (08:43)
--- NOTE | 2019-10-10 10:19 | Progress Note-Post Operative ---
Post-Operative Progess Note Surgeon (s)/Marketing Recruiter (s) Surgeon BUSTER FRANCO MD Marketing Recruiter: yanira parmar GENERAL PRODUCTION MANAGER Pre-Operative Diagnosis Symptomatic right side abdominal wall hematoma Post-Operative Diagnosis intercostal right flank recurrent hematoma. Procedure & Operative Findings Date of Procedure 10/10/19 Procedure Performed/Findings evacuation intramuscular thoracic wall hematoma (6x3cm) Anesthesia Type general LMA Estimated Blood Loss Estimated blood loss (mL): minimal Specimens/Packing Specimens Removed none BUSTER FRANCO MD Oct 10, 2019 10:19
[2019-10-10] MEDS ORDERED: morphine INJ 10 MG/ML 1ML (SYR OR VIAL) IVP ONE (10:45)
[2019-10-10] MEDS ORDERED: HYDROmorphone 2 MG/ML VIAL (DILAUDID) IV ONE (10:45)
--- NOTE | 2019-10-10 10:50 | Anesthesia-General Post-Op ---
General Patient Condition Mental Status/LOC: Same as Preop Cardiovascular: Satisfactory Nausea/Vomiting: Absent Respiratory: Satisfactory Pain: Controlled Complications: Absent Post Op Complications Complications None Follow Up Care/Instructions Patient Instructions None needed. Anesthesia/Patient Condition Patient Condition Patient is doing well, no complaints, stable vital signs, no apparent adverse anesthesia problems. ASHA YARBROUGH DO Oct 10, 2019 10:50
--- NOTE | 2019-10-10 20:19 | OPERATIVE REPORT ---
DATE OF SERVICE: 10/10/2019 ATTENDING PRIMARY CARE PHYSICIAN: Dr. Tom Gallagher. PREOPERATIVE DIAGNOSIS: Recurrent right lateral thoracic wall intercostal hematoma. POSTOPERATIVE DIAGNOSES: Recurrent right lateral thoracic wall intercostal hematoma with the dimensions of the hematoma, 6 x 3 cm in size. No active bleeding. PROCEDURE: Evacuation of hematoma, right intramuscular thoracic wall hematoma. SURGEON: Dennise Franco MD. BANDSAW OPERATOR: Kostas Corea APRN. ANESTHESIA: General laryngeal mask airway. ESTIMATED BLOOD LOSS: Minimal. FINDINGS: Recurrent hematoma between the intercostal muscles of the right lower and lateral thoracic wall. DISPOSITION: The patient tolerated the procedure well. INDICATIONS: The patient is a 64-year-old male known to us. He was initially referred over to us from the [facility] in [place], [place]. He states in 11/2018, he developed right flank pain and a painful lesion. An ultrasound was performed, which did show fluid collection 5 x 4.1 cm in size. He underwent exploration and evacuation of a submuscular hematoma around the right flank and thoracic wall. This was approximately 5 x 10 cm in size. He developed recurrent swelling and pain. He does have a chronic cough, which has caused irritation within the region as well as worsening pain. Another CT scan was performed, which did show reaccumulation of fluid approximately 6 x 3 cm in size. Again, he reports that this is painful. DESCRIPTION OF PROCEDURE: The patient was brought to the operating room, laid supine on the table. After adequate IV pain and sedative medications and general laryngeal mask airway intubation, the patient was then placed with the right side angled upward. The chest and abdomen were then prepped and draped in standard surgical fashion. A 0.5% Marcaine with epinephrine was then used to anesthetize the overlying skin, subcutaneous tissue as well as intramuscular layers. Skin incision was then made using a 15 blade. Subcutaneous tissue was then dissected using electrocautery. The overlying fascia as well as the external oblique and the intercostal muscles were then opened under direct visualization using electrocautery. The hematoma was identified and completely evacuated out using suction. This area was explored with no active bleeding identified as well as no signs of infection. The hematoma capsule was also cauterized. Good hemostasis was observed. The fascia was then reapproximated using 3-0 Vicryl interrupted sutures. The skin was closed using 4-0 Monocryl running subcuticular suture. Wound was then cleaned and covered. The skin was then closed using 4-0 Monocryl running subcuticular suture. Wound was then cleaned and covered with Dermabond. The patient tolerated the procedure well. We will start IV normal pain medication as well as a clear liquid diet. Once he is tolerating clears, has good pain control with oral pain medications, ambulating well, we will discharge him home. He will be instructed to do no strenuous activities for the next two weeks. Job ID: [id number] DocumentID: [id number] Dictated Date: 10/10/2019 10:26:28 Medical Instrument Technician Date: 10/10/2019 20:18:39 Dictated By: DENNISE FRANCO MD
== END 2019-10-10 11:55 | disposition home or self-care (01) ==
LOC: SDC 07:41
PROVIDERS: ATTEND Surgery
DX: S20.20XA Contusion of thorax, unspecified, initial encounter (principal); I25.10 Atherosclerotic heart disease of native coronary artery without angina pectoris; I10 Essential (primary) hypertension; F17.210 Nicotine dependence, cigarettes, uncomplicated; Z79.899 Other long term (current) drug therapy; Z79.82 Long term (current) use of aspirin; Z88.5 Allergy status to narcotic agent; Z90.49 Acquired absence of other specified parts of digestive tract; Z85.828 Personal history of other malignant neoplasm of skin
CPT/HCPCS: 87081

== ENCOUNTER → 2020-01-24 | Outpatient (CLI) | payer OTHER ==
[~2020-01-24] MED LIST changes: +ACHD5005 PO; -HYDR-3812 PO; +HYDR-4227 PO
--- NOTE | 2020-01-24 14:43 | Diagnostic Imaging Report ---
PROCEDURE: CT abdomen and pelvis without contrast. TECHNIQUE: Multiple contiguous axial images were obtained through the abdomen and pelvis without the use of intravenous contrast. Auto Exposure Controls were utilized during the CT exam to meet ALARA standards for radiation dose reduction. INDICATION: Abdominal fullness, history of surgery of right side of abdomen. Not healing correctly. CORRELATION STUDY: 08/02/2019 FINDINGS: LOWER THORAX: Clear. Prominent left ventricular enlargement. LIVER: Unremarkable. GALLBLADDER: Cholecystectomy. SPLEEN: Unremarkable. PANCREAS: Mildly atrophic. ADRENAL GLANDS: Unremarkable. KIDNEYS: Nonobstructing 5 mm stone superior pole left kidney. Additional punctate calcification superior pole. No hydronephrosis. Right kidney and collecting system unremarkable. ABDOMINAL AORTA: Mild wall calcification, nonaneurysmal. GASTROINTESTINAL TRACT: Stomach is collapsed. No small bowel distention. Mild stool retention throughout the colon. Distal colonic diverticulosis without evidence for acute diverticulitis. Appendix not visualized. URINARY BLADDER: Unremarkable. REPRODUCTIVE: Prostate gland is mildly enlarged. OSSEOUS STRUCTURES: No acute abnormality. OTHER: Asymmetric thickening about the right lateral abdominal wall musculature is again demonstrated. This overall however appears less pronounced from prior study. A slightly more focal low-density collection currently measures 18 x 10 mm (previous 28 x 11 mm) densities in the external musculature. Internal collection at approximately 9 mm, (previously 12 mm). IMPRESSION: 1. Continued but interval decrease in size of the asymmetric thickening and fluid collections of the lateral right abdominal wall musculature. Dictated by: Dictated on workstation # [id number]
== END ==
LOC: RAD 13:45
DX: R14.0 Abdominal distension (gaseous) (principal); Z87.890 Personal history of sex reassignment
CPT/HCPCS: 74176

== ENCOUNTER → 2020-04-10 | Outpatient (CLI) | payer OTHER ==
--- NOTE | 2020-04-10 14:18 | Diagnostic Imaging Report ---
INDICATION: Chronic forearm pain. COMPARISON: None FINDINGS: Frontal and lateral radiographic views of the right forearm were obtained. Patient is status post previous ORIF of the distal ulnar shaft. Orthopedic side plate and screws appear well positioned and well seated. Chronic deformity of the ulnar shaft is noted consistent with old healed fracture. There is no evidence of acute fracture or dislocation of the right forearm. Joint spaces are maintained. No unexpected radiopaque foreign bodies are seen. IMPRESSION: 1. Old healed fracture and postsurgical changes of previous ORIF of the distal ulnar shaft as described above. 2. No acute fracture or dislocation of the right forearm. Dictated by: Dictated on workstation # [id number]
== END ==
LOC: RAD 13:07
PROVIDERS: ATTEND Hospitalist
DX: G89.29 Other chronic pain (principal); M79.631 Pain in right forearm; Z98.890 Other specified postprocedural states; Z87.81 Personal history of (healed) traumatic fracture
CPT/HCPCS: 73090